=== PATIENT | male | born 1955 | race Caucasian/White ===

== ENCOUNTER 2019-09-09 19:30 | Emergency (ER) | payer MEDICAID ==
[~2019-09-09] VITALS: Ht 180.3 cm; Wt 68.0 kg
[2019-09-09 19:30] VITALS: BP 175/114
[2019-09-09] MEDS ORDERED: ACETAMINOPHEN ES 500 MG TABLET ONE (19:51)
[2019-09-09] MEDS ORDERED: ACETAMINOPHEN ES 500 MG TABLET PO ONE (20:00)
== END 2019-09-09 19:56 | disposition home or self-care (01) ==
LOC: ER 19:35
DX: K08.89 Other specified disorders of teeth and supporting structures (principal)